=== PATIENT | male | born 1990 | race Caucasian/White ===

== ENCOUNTER 2024-11-18 05:40 | Emergency (ER) | payer BC, SELFPAY ==
[2024-11-18] VITALS (8 sets, daily range): BP systolic 134–152; BP diastolic 90–132; PULSE 79–107; RESP 11–22; O2SAT 99–100
--- NOTE | ~2024-11-18 | XR_ITS ---
Clinical Indication: Chest pain PA and lateral views of the chest: Comparison: None Findings: The lungs are clear, without evidence of focal consolidation or pleural effusion. Cardiome diastinal silhouette is within normal limits. Bones and soft tissues are unremarkable. Impression: Normal chest. Reviewed, dictated and finalized at location . Impression: Normal chest.
--- NOTE | 2024-11-18 05:44 | ECG_ITS ---
Test Date: 2024-11-18 05:52:37 Measurements Intervals [place] Rate: 82 P: 39 [place]: 161 QRS: 21 QRSD: 104 T: 37 QT: 369 QTc: 433 Interpretive Statements SINUS RHYTHM NORMAL ECG No previous ECG available for comparison Electronically Signed On 11-18-2024 08:10:32 CDT by Kwan Teixeira M.D.
--- NOTE | 2024-11-18 06:07 | PC.NURSE ---
Pt presents to ED c/o chest pain, dizziness, lightheadedness lasting about 20min. Per pt was driving when it started having blue balls radiating to chest . Pt placed on advocacy director, and cont. pulse oximeter, EKG done at bedside. Per pt symptoms have subsided and he would like to go back to work.
[2024-11-18 06:08] LABS: Basophils Percent Auto 0.8 % (0.2-1.2); Eosinophils Absolute Auto 0.1 K/mm3 (0-0.3); Eosinophils Percent Auto 2.3 % (0-4.4); Hematocrit 43.1 % (42.0-52.0); Immature Granulocyte Absolute 0.01 K/mm3 (0.00-0.031); Immature Granulocyte Percent A 0.2 % (0-0.5); Lymphocytes Absolute Auto 1.78 K/mm3 (0.9-3.2); Lymphocytes Percent Auto 34.8 % (18.3-44.2); Mean Corpuscular HGB Conc 34.8 g/dl (32-36); Mean Corpuscular Hemoglobin 33.4 pg (26-34); Mean Platelet Volume 9.3 fl (7.4-10.4); Monocytes Absolute Auto 0.5 K/mm3 (0.1-0.6); Monocytes Percent Auto 10.5 % (2.6-8.5); Neutrophils Absolute Auto 2.6 K/mm3 (1.3-6.7); Neutrophils Percent Auto 51.4 % (45.5-73.1); Platelet Count Result 304 k/mm3 (150-375); Red Blood Count 4.49 M/mm3 (4.6-6.20); Red Cell Distribution Width 12.2 % (11.5-14.5); White Blood Count 5.1 K/mm3 (4.5-10.0)
[2024-11-18 06:17] LABS: Add Urine Microscopic? YES; Appearance Urine Clear (Clear); Bacteria Urine None Seen /hpf; Bilirubin Urine Negative (Negative); Blood Urine Negative (Negative); Color Urine Dark Yellow (Yellow); Glucose Urine UA Negative (Negative); Ketones Urine Trace mg/dL (Negative); Leukocyte Esterase Ur Negative LEU/UL (Negative); Nitrate Urine Negative (Negative); Non Pathogenic Casts 0-2; Protein Urine Trace mg/dL (Negative); RBC Urine 0-2 /hpf (0-2); Specific Grav Ur 1.034 (1.001-1.035); Squamous Epithelial Cell Urine None Seen /hpf (Few); WBC Urine 0-5 /hpf (0-3); pH Urine 5.5 (5.0-9.0)
[2024-11-18 06:19] LABS: Alanine Aminotransferase 61 U/L (6-50); Albumin Level 4.8 g/dL (3.5-5.1); Alkaline Phosphatase 55 U/L (38-126); Anion Gap 12 mmol/L (4-12); Aspartate Amino Transferase 53 U/L (17-59); Bilirubin,Total 0.4 mg/dL (0.2-1.3); Blood Urea Nitrogen 16 mg/dL (9-20); Calcium 9.1 mg/dL (8.4-10.2); Carbon Dioxide 24 mmol/L (22-30); Chloride 103 mmol/L (98-107); Estimated CRCL calculation 104 ml/min; Estimated Glomerular Filt Rate > 60; Glucose 147 mg/dL (65-110); Lipase 111 U/L (23-300); Potassium 3.3 mmol/L (3.4-5.0); Sodium 139 mmol/L (137-145)
[2024-11-18 06:24] LABS: INR 0.9; Partial Thromboplastin Time 26.3 Seconds (22.3-36.8); Prothrombin Time 12.4 Seconds (11.1-14.7)
--- OUTSIDE RECORDS SUMMARY | 2024-11-18 06:28 | XMS_ITS | Encounter Summary ---
Author Organization [facility] Address [address] [place] [address] Care Team Providers Care Benefit Authorizer Name Role Phone Summer Burris Primary Care Provider [phone] Encounter Details Date Type Department Care Team (Late st Contact Info) Description 10/31/2024 Results Follow-Up [facility] Family & Internal Medicine [address] [address] Summer Burris APNP [facility] [place], [place] [phone] XR CHEST PA+LAT Social History Tobacco Use Types Packs/Day Years Used Date Smoking Tobacco: Every Day Cigarettes 1 15 Started: 11/17/2009 Smokeless Tobacco: Never Comments:Provider to alcohol and drug counselor . 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 Answer Date of Assessment Author Status No 06/10/2022 5:44 PM FLOOR FINISHER Activ e * Do you have serious difficulty walking or climbing stairs? Answer Date of Assessment Author Status No 06/10/2022 5:44 PM Jesika Alicia RN Active * Do you have difficulty dressing or bathing? Answer Date of Assessment Author Status No 06/10/2022 5:44 PM Jesika Alicia RN Active * Because of a physical, mental, or emotional condition, do you have difficulty doing errands alone such as visiting a doctor's office or shopping? Answer Date of Assessment Author Status No 06/10/2022 5:44 PM Jesika Alicia RN Active * Over the past 2 weeks, how often have you been bothered by any of the following problems? Question Answer Date of Assessment Author Status Little interest or pleasure in doing things Not at all 10/31/2024 1:54 PM MARIAMT Kathy Shah MA Active Feeling down, depressed, or hopeless Not at all 10/31/2024 1:54 PM MARIAMT Dena Shah MA Active Patient Health Questionnaire-2 Score 0 10/31/2024 1:54 PM MARIAMT Shasta Shah MA Active documented as of this encounter Mental Status * Because of a physical, mental, or emotional condition, do you have serious difficulty concentrating, remembering, or making decisions? Answer Entry Date Author Status No 06/10/2022 5:44 PM Jesika Alicia RN Active documented in this encounter Plan of Treatment Upcoming Encounters Date Type Department Care Team (Late st Contact Info) Description 12/07/2024 9:00 AM CDT Office Visit [facility] Family & Internal Medicine [address] [place] [phone] Summer Burris APNP [facility] [place] [address] documented as of this encounter Goals Goal Patient Goal Type Associated Problems Recent Progress Patient-Stated? Author Patient will return to prior living situation and remain independent in ADLs upon discharge from hospital Lifestyle No Sharee Bateman RN documented as of this encounter Visit Diagnoses Not on filedocumented in this encounter Additional Health Concerns Assessment Noted Time PHQ-9 Depression Total Score: 15 024 2:04 PM CDT documented as of this encounter Care Teams Benefit Authorizer Relationship Specialty Start Date End Date Summer Burris APNP [address] [place] [address] PCP - General NURSE PRACTITIONER 11/18/23 documented as of this encounter
--- OUTSIDE RECORDS SUMMARY | 2024-11-18 06:28 | XMS_ITS | Patient Health Record ---
Author Organization [facility] Address [address] [place] [address] Care Team Providers Care Respiratory Practitioner Name Role Phone El Cook Primary Care Provider [phone] Reason For Referral No Information Medications Medication SIG (Take, Route, Frequency, Duration) Notes Start Date End Date Status Wellbutrin 100 MG 1 tablet in the morn ing Orally once a day for 30 day(s) 09/15/2015 Active FLUoxetine HCl 20 MG 1 tablet in the anjana venita Orally Once a day for 30 day(s) 06/30/2015 Not-Taking OLANZapine 5 MG 1 tablet with fluoxe lucien in the evening Orally Once a day for 30 day(s) 06/30/2015 Not-Taking Ranitidine HCl 150 MG 1 tablet Orally Tw ice a day for 30 day(s) 06/25/2015 Active Problems Problem Type SNOMED Code ICD Code Onset Dates Problem Status W/U Status Risk Notes Problem Genital herpes simplex (14835373) Herpesviral infection of urogenital system, unspecified (A60.00) Active confirmed Problem Mood disorder (disorder) (13148313) Persistent 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 GONORRHOEAE RNA, TMA 2015 TRICHOMONAS VAGINALIS RNA QUALITATIVE TM A, MALES 09/15/2015 Insurance Providers Payer Name Payer Address Payer Phone Subscriber Number Group Number Insured Name Patient Relationship to Insured Coverage Start Date Coverage End Date [address] [address] [id number] [place] Self - patient is the insured Medicaid [employer] Primary [address] [id number] [place] Self - patient is the insured Medical (General) History Surgical History Surgery Date(Month/Year) hernia surgery
--- OUTSIDE RECORDS SUMMARY | 2024-11-18 06:28 | XMS_ITS | Clinical Summary ---
Author Organization [facility] Address [facility] [place] [address] Care Team Providers Care Sheet Metal Fabricator Name Role Phone FatumaShanthi AMBER Primary Care Provider [phone] Allergies No known active allergies Medications omeprazole (PRILOSEC) 40 MG capsuleIndication s:Gastroesophagea l reflux disease without esophagitis Take 1 capsule (40 mg total) by mouth daily. 90 capsule 5 Active albuterol sulfate HFA 108 (90 Base) MCG/ACT inhaler 5 Active lisdexamfetamine (VYVANSE) 50 MG capsuleIndication s:Attention deficit hyperactivity disorder (ADHD), predominantly inattentive type Take 1 capsule (50 mg total) by mouth every morning. 30 capsule 5 Active amphetamine-dextr oamphetamine (ADDERALL) 10 MG tabletIndications :Attention deficit hyperactivity disorder (ADHD), predominantly inattentive type Take 1 tablet (10 mg total) by mouth daily. 60 tablet 5 Active lisdexamfetamine (VYVANSE) 40 MG capsuleIndication s:Attention deficit hyperactivity disorder (ADHD), predominantly inattentive type Take 1 capsule (40 mg total) by mouth every morning. 15 capsule 5 11/01/19 25 Discontinu ed(Dose adjustment ) Active Problems Problem Noted Date Diagnosed Date History of diverticulitis 11/18/2023 Diverticulitis 06/10/2022 Insomnia 06/10/2022 GERD (gastroesophageal reflux disease) HPV in male ADD (attention deficit disorder) Encounters Date Type Department Care Team Description 11/01/[address] [facility] Family & Internal Medicine [address] [address] Shanthi Burris APNP Results 10/31/2024 1:40 PM CDT Office Visit [facility] Family & Internal [address] [address] Shanthi Burris APNP Attention Deficit Hyperactivity Disorder; Personal Testing (Pt would like to be tested for STD's. ) 10/31/2024 Hospital Encounter [facility] [address] [place] [address] Shanthi Burris APNP Discharge Disposition: Home or Self Care (Routine Discharge) 10/31/2024 Hospital Encounter [facility] [address] [place] [address] Shanthi Burris APNP Discharge Disposition: Home or Self Care (Routine Discharge) 10/31/2024 Results Follow-Up [facility] Family Internal [address] [address] Shanthi Burris APNP XR CHEST PA+LAT 10/31/2024 Travel from Last 3 Months Immunizations Immunization Administration Dates Next Due Dtap (Acel-Immune) 12/10/1997 Dtp (Generic) 01/27/1994,03/05/1993,01/01/1993 ,1992 Hepatitis B Pediatric 07/01/1998,02/04/1998,03/1998 Hib (Generic) 01/27/1994,03/05/1993,01/01/1993 ,1992 MMR (MMRII) 12/10/1997,01/27/1994 Polio Opv (Generic) 12/10/1997,01/27/1994,1992,1992 Tdap (Adacel) 11/18/2023 Tdap (Generic) 01/19/2015,01/21/2014 Social History Tobacco Use Types Packs/Day Years Used Date Smoking Tobacco: Every Day Cigarettes 1 15 Started: 11/17/2009 Smokeless Tobacco: Never Tobacco Cessation:Ready to Q uit: Yes; Counseling Given: Yes Comments:Provider to automobile travel club counselor. 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 Not on file Not on file Last Filed Vital Signs Vital Sign Reading Time Taken Comments Blood Pressure 126/84 10/31/2024 1:55 PM CDT Pulse 96 10/31/2024 1:55 PM CDT Temperature 36.6 C (97.9 F) 10/31/2024 1:55 PM CDT Respiratory Rate 16 10/31/2024 1:55 PM CDT Oxygen Saturation 98% 10/31/2024 1:55 PM CDT Inhaled Oxygen Concentration - - Weight 85.6 kg (188 lb 12.8 oz) 10/31/2024 1:55 PM CDT Height 177.8 cm (5' 10 ) 10/31/2024 1:55 PM CDT Body Mass Index 27.09 10/31/2024 1:55 PM CDT Plan of Treatment Upcoming Encounters Date Type Department Care Team (Late st Contact Info) Description 12/07/2024 9:00 AM CDT Office Visit [facility] Family & Internal Medicine [address] [address] Shanthi Burris APNP [address] [place] [address] Health Maintenance Due Date Last Done Comments Annual Physical 1995 Pneumococcal Vaccine: Pediatrics (0 to 5 Years) and At-Risk Patients (6 to 49 Years) (1 of 2 - PCV) 2011 COVID-19 Vaccine ( - 2023- season) 2024 DTaP, Tdap and Td Vaccines (9 - Td or Tdap) 11/17/2033 11/18/2023, 01/19/2015, 01/21/2014, Additional history exists Hepatitis B Vaccines Completed 07/01/1998, 02/04/1998, 12/10/1997 Hepatitis C Completed 10/31/2024, 12/30/2023 PHQ-2 (Physician [place]) Completed 10/31/2024 HPV Vaccines Aged Out No longer eligi ble based on patient's age to complete this topic Meningococcal B Vaccine Aged Out No l onger eligible based on patient's age to complete this topic Meningococcal Vaccine Aged Out No luciana gokul eligible based on patient's age to complete this topic RSV Immunizations Under 20 Months Aged Out No longer eligible based on patient's age to complete this topic Goals Goal Patient Goal Type Associated Problems Recent Progress Patient-Stated? Author Patient will return to prior living situation and remain independent in ADLs upon discharge from hospital Lifestyle Sharee Hatfield RN Procedures Procedure Name Priority Date/Time Associated Diagnosis Comments XR CHEST PA+LAT Routine 10/31/2024 2:52 PM CDT Acute cough Other fatigue COLLECTION VENOUS BLOOD VENIPUNCTURE Routine 10/31/2024 2:32 PM CDT Encounter for long-term current use of high risk medication Attention deficit hyperactivity disorder (ADHD), predominantly inattentive type Screening for STD (sexually transmitted disease) Acute cough Other fatigue CHLAMYDIA GC RNA Routine 10/31/2024 2:24 PM CDT Screening for STD (sexually transmitted disease) HERPES SIMPLEX VIRUS IGG Routine 10/31/2024 2:24 PM CDT Screening for STD (sexually transmitted disease) HEPATITIS C ANTIBODY Routine 10/31/2024 2:24 PM CDT Screening for STD (sexually transmitted disease) HIV 1 ANTIGEN(S), WITH HIV-1 AND HIV-2 ANTIBODIES Routine 10/31/2024 2:24 PM CDT Screening for STD (sexually transmitted disease) SYPHILIS AB (DIAGNOSTIC) WITH CASCADING REFLEX Routine 10/31/2024 2:24 PM CDT Screening for STD (sexually transmitted disease) MG/PCCL UDS W CONF Routine 10/31/2024 2: 03 PM CDT Encounter for long-term current use of high risk medication from Last 3 Months Results * XR CHEST PA+LAT (10/31/2024 2:52 PM CDT) Anatomical Region Laterality Modality Chest Radiographic Emi ging 10/31/2024 3:20 PM CDT Impressions 10/31/2024 3:20 PM CDT IMPRESSION: Negative chest Ordered By: SHANTHI BURRIS Interpreted By: Kameron Carbone MD, 10/31/2024 3:20 PM Narrative 10/31/2024 3:20 PM CDT [place] [address] 2 VIEWS OF THE CHEST Clinical history: Pneumonia Comparison: July 15, 2024 2 views of the chest demonstrate the cardiac silhouette to be normal in size and appearance. The pulmonary vasculature appears normal. The Lungs are clear. No consolidations or effusions are seen. Procedure Note Kameron Carbone MD - 10/31/2024 [place] [address] 2 VIEWS OF THE CHEST Clinical history: Pneumonia Comparison: July 15, 2024 2 views of the chest demonstrate the cardiac silhouette to be normal insize and appearance. The pulmonary vasculature appears normal. The Lungsare clear. No consolidations or effusions are seen. IMPRESSION: Negative chest Ordered By: SHANTHI BURRIS Interpreted By: Kameron Carbone MD, 10/31/2024 3:20 PM us Shanthi Burris APNP GENERAL IMAGING Final Resul t * SYPHILIS AB (DIAGNOSTIC) WITH CASCADING REFLEX (10/31/2024 2:24 PM CDT) SYPHILIS IGG IGM AB NON-REACTI VE NON-REACTI VE 10/31/2024 10:05 PM CDT [facility] Comment: No serologic evidence of syphilis. No follow-up necessary unless clinically indicated. 10/31/2024 2:24 PM CDT [facility] Final Resul t Performing Organization Address City/[facility]/ZIP Co de Phone Number [facility] [address] [place] [address], [place] [phone] * CHLAMYDIA GC RNA (10/31/2024 2:24 PM CDT) SPEC DESCRIPTION URINE 11/01/19 25 2:24 PM CDT [facility] CHLAMYDIA RNA TMA NEGATIVE NEGATIVE 025 1:49 PM CDT [facility] Comment:PERFORMED BY NUCLEIC ACID AMPLIFICATION N.GONORRHOEAE RNA TMA NEGATIVE NEGATIVE 11/01/2024 1:49 PM CDT [facility] Comment:PERFORMED BY NUCLEIC ACID AMPLIFICATION URINE SPECIMEN / Unknown 10/31/2024 2:24 PM CDT Shanthi CLARK MICROBIOLOGY - GENERAL ORDE RABLES Final Result Performing Organization Address [facility] Co de Phone Number [facility] [address] [place] [address], [place] [phone] * HIV 1 ANTIGEN(S), WITH HIV-1 AND HIV-2 ANTIBODIES (10/31/2024 2:24 PM CDT) HIV 1/2 AB+ HIV1 P24 AG NON-REACTI VE NON-REACTI VE 10/31/2024 10:05 PM CDT [facility] Comment:HIV 1 p24 Ag and HIV 1/ HIV 2 Ab not detected. 10/31/2024 2:24 PM CDT [facility] Final Resul t [facility] [address] [place] [address], [id number] * HERPES SIMPLEX VIRUS IGG (10/31/2024 2:24 PM CDT) Pathologist [facility] HSV IGG TYPE 1 <0.90 index [facility] HSV IGG TYPE 2 <0.90 index [facility] Comment: Index Interpretation ----- <0.90 Negative 0.90-1.09 Equivocal >1.09 Positive This assay utilizes recombinant type-specific antigens to differentiate HSV-1 from HSV-2 infections. A positive result cannot distinguish between recent and past infection. If recent HSV infection is suspected but the results are negative or equivocal, the assay should be repeated in 4-6 weeks. The performance characteristics of the assay have not been established for pediatric populations, immunocompromised patients, or screening. For additional information, please refer to http://education.FlowPay/faq/GRT349 (This link is being provided for informational/ educational purposes only.) 10/31/2024 2:24 PM CDT 11/02/2024 3:44 AM CDT Narrative Resulting Agency Comment Performing Organization Information: Site ID: [place] Name: Marisela Noel Address: [address] [facility] [place] [address] Director: Fernandez Breen MD [facility] Final Resul t MARISELA HAMMONDS REY RODRIGUEZ [facility] [id number] [place], [place] [address] [address], * HEPATITIS C AB ([facility] ONLY) (10/31/2024 2:24 PM CDT) Pathologist [facility] HEPATITIS C AB NON-REACTI VE NON-REACT RAJI 10/31/2024 10:[address] [facility] Comment: ANTIBODIES TO HCV NOT DETECTED. DOES NOT EXCLUDE THE POSSIBILITY OF EXPOSURE TO HCV. 10/31/2024 2:24 PM CDT Shanthi Burris [facility] Final Resul t [facility] [address] [place] [id number], [id number] * (ABNORMAL) MG/PCCL UDS W CONF (10/31/2024 2:03 PM CDT) RESULT SUMMARY [facility] Comment: Prescribed Prescribed Not Prescribed Consistent Inconsistent Inconsistent Vyvanse(TM) PRESCRIBED DRUG 1 (U) Vyvanse(TM) [facility] FENTANYL SCREEN (U) NEGATIVE <0.5 ng/mL [facility] MORPHINE (U) NEGATIVE <10 ng/mL [facility] DESMETHYLTRAMADOL (U) NEGATIVE <100 ng/mL [facility] TRAMADOL (U) NEGATIVE <100 ng/mL [facility] TRAMADOL COMMENTS [facility] Comment:See LDT Notes AMPHETAMINES PM POSITIVE(A) <500 ng/mL [facility] AMPHETAMINES PM CONFIRMATION (U) 9,027(H) <250 ng/mL [facility] AMPHETAMINES PM MEDMATCH CONF (U) CONSISTENT [facility] METHAMPHETAMINE PM (U) NEGATIVE <250 ng/mL [facility] AMPHETAMINES COMMENT [facility] Comment:See Amphetamines Not es, LDT Notes BARBITURATES PM (U) NEGATIVE <300 ng/mL [facility] BENZODIAZEPINES PM (U) NEGATIVE <100 ng/mL [facility] COCAINE METABOLITE PM (U) NEGATIVE <150 ng/mL [facility] MARIJUANA METABOLITE PM (U) NEGATIVE <20 ng/mL [facility] METHADONE PM (U) NEGATIVE <100 ng/mL [facility] OPIATES PM (U) NEGATIVE <100 ng/mL [facility] OXYCODONE PM (U) NEGATIVE <100 ng/mL [facility] CREATININE RANDOM (U) 280.2 > or = 20.0 mg/dL [facility] pH PM (U) 6.1 4.5 - 9.0 MARISELA DELACRUZ OXIDANT NEGATIVE <200 mcg/mL [facility] NOTE [facility] Comment: This drug testing is for medical treatment only. Analysis was performed as non-forensic testing and these results should be used only by healthcare providers to render diagnosis or treatment, or to monitor progress of medical conditions. Amphetamines Notes: Amphetamine detected is consistent with the use of the drug Amphetamine. Amphetamine can be a prescribed drug and is also a metabolite of methamphetamine. LDT Notes: Confirmation tests were developed and their analytical performance characteristics have been determined by [facility]. It has not been cleared or approved by the FDA. This assay has been validated pursuant to the CLIA regulations and is used for clinical purposes. medMATCH(R) enables providers to identify if drug use is consistent or inconsistent with a corresponding prescribed medication(s) list. Healthcare Providers needing Interpretation assistance, please contact us at [phone] ( ) M-F, 8am to 10pm EST URINE SPECIMEN / Unknown 10/31/2024 2:03 PM CDT 11/01/2024 4:31 AM CDT Narrative Resulting Agency Comment Performing Organization Information: Site ID: [id number] [facility] Address: [address] [place] [address] Director: Hans Massey Site ID: [id number] Name: [facility] Address: [address] [place] [address] Director: Fernandez Breen MD Shanthi CLARK URINE ORDERABLES Final Resu lt MARISELA HAMMONDS - REY ORDERS [facility] [address] [facility] [place] [address], N-S[employer] [address] [place] [address] from Last 3 Months Insurance [facility] Advance Directives * Full Code (Latest Code Status on File) Date Activated Date Inactivated Comments 06/10/2022 5:00 PM 06/12/2022 3:29 PM Care Teams Sheet Metal Fabricator Relationship Specialty Start Date End Date Shanthi Burris APNP [address] [place] [address] PCP - General NURSE PRACTITIONER 11/18/23
--- OUTSIDE RECORDS SUMMARY | 2024-11-18 06:28 | XMS_ITS | Encounter Summary ---
Author Organization [facility] Address [address] [place] [address] Care Team Providers Care Crown And Bridge Technician Name Role Phone None, Provider Primary Care Provider Juventino Sidhu MD Primary Care Provider Summer Burris Primary Care Provider [phone] Encounter Details Date Type Department Care Team (Late st Contact Info) Description 12/09/2018 Abstract [facility] CONVERSION [address] [place] [address] Md, Generic Conversion, Social History Tobacco Use Types Packs/Day Years Used Date Smoking Tobacco: Never Assessed Sex and Gender Information Value Date Recorded Sex Assigned at Male 10/31/2024 1:54 PM CDT 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 Gender Identity Not on file Sexual Orientation Not on file documented as of this encounter Plan of Treatment Upcoming Encounters Date Type Department Care Team (Late st Contact Info) Description 12/07/2024 9:00 AM CDT Office Visit [facility] Family & Internal Medicine - [place] [address] [place] [address] Summer Burris APNP [address] [place] [address] documented as of this encounter Visit Diagnoses Not on filedocumented in this encounter Additional Health Concerns Infection Onset Date Last Indicated Resolved Time COVID-19 Rule Out 12/15/2021 12/15/2021 12/16/2021 7:25 PM CDT documented as of this encounter Care Teams Crown And Bridge Technician Relationship Specialty Start Date End Date None, Provider, PCP - General 12/17/19 12/23/21 [place] [address] [place] [address] [place] [address] PCP - General FAMILY PRACTICE 12/24/21 11/17/23 Summer Burris APNP [address] [place] [id number] PCP - General NURSE PRACTITIONER 11/18/23 documented as of this encounter
--- OUTSIDE RECORDS SUMMARY | 2024-11-18 06:28 | XMS_ITS | Encounter Summary ---
Author Organization [facility] Address [address] [place] [address] Care Team Providers Care Milk Receiver [employer] Name Role Phone None, Provider Primary Care Provider Juventino Sidhu MD Primary Care Provider Summer Burris Primary Care Provider Encounter Details Date Type Department Care Team (Late st Contact Info) Description 09/17/2017 Abstract [facility] CONVERSION [address] [place] [address] , Generic Conversion, Social History Tobacco Use Types Packs/Day Years Used Date Smoking Tobacco: Never Assessed Sex and Gender Information Value Date Recorded Sex Assigned at Male 10/31/2024 1:54 PM CDT 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 Gender Identity Not on file Sexual Orientation Not on file documented as of this encounter Plan of Treatment Upcoming Encounters Date Type Department Care Team (Late st Contact Info) Description 12/07/2024 9:00 AM CDT Office Visit [facility] - [place] [address] [place] [phone] Summer Burris APNP [address] [place] [address] documented as of this encounter Visit Diagnoses Not on filedocumented in this encounter Additional Health Concerns Infection Onset Date Last Indicated Resolved Time COVID-19 Rule Out 12/15/2021 12/15/2021 12/16/2021 7:25 PM CDT documented as of this encounter Care Teams Milk Receiver [employer] Relationship Specialty Start Date End Date None, Provider, PCP - General 12/17/19 12/23/21 [place] [address] [place] [address] [place] [phone] PCP - General FAMILY PRACTICE 12/24/21 11/17/23 Summer Burris APNP [address] [place] [phone] PCP - General NURSE PRACTITIONER 11/18/23 documented as of this encounter
[2024-11-18 06:31] LABS: Troponin I < 0.012 ng/mL (0.000-0.034)
--- NOTE | 2024-11-18 06:32 | ED.CHESTPAIN ---
HPI - Chest Pain General Chief Complaint: Chest Pain Stated Complaint: abd pain radiating to chest Time Seen by Provider: 11/18/24 05:46 History of Present Illness HPI narrative: Patient presenting with sudden episode of pain from the lower abdomen that went up to his chest, this lasted for about 10 minutes, he got very short of breath and sweaty, then the symptoms resolved completely and now he is feeling fine. The pain did not go to his back, he had no focal numbness or weakness anywhere, no nausea vomiting. No testicular pain. Review of Systems Review of Systems: All systems reviewed & are unremarkable except as noted in HPI and below Exam Narrative: EXAMINATION OF ORGAN SYSTEMS/BODY AREAS: Constitutional: Vital signs per nursing GENERAL:[No acute distress, non-toxic appearing.] HEAD: Normal with no signs of head trauma. EYES: EOMI, conjunctiva normal ENT: Hearing grossly intact LUNGS: Nonlabored breathing. HEART: [Regular rate and rhythm], normal bilateral pedal and radial pulses ABD: [Soft], [nontender to palpation] EXT: Normal range of motion SKIN: [No rashes or lesions.] NEURO: [Alert and oriented x 3. No gross focal sensory or strength deficits.] PSYCH: Normal affect Course Vital Signs Vital signs: Vital Signs Oxygen Delivery Room Air 11/18/24 06:06 Oxygen Delivery Room Air 11/18/24 06:06 MDM - Chest Pain MDM Narrative Medical decision making narrative: ED COURSE AND MEDICAL DECISION MAKIN-year-old male presenting with abdominal to chest pain now resolved. EKG done in triage negative for acute ischemic changes. Cardiac workup is initiated. EKG: Performed in triage and interpreted by me. Normal sinus rhythm. Rate 82. Normal axis. [place] normal. QRS duration normal. QTc normal. No pathologic Q waves. No ST segment elevation or depression to suggest acute ischemia. No RV strain pattern. HEART score is 0 with no acute ischemic changes on EKG and negative troponin making ACS unlikely. Wells low risk with negative PERC making PE unlikely. Presentation not consistent with dissection or aneurysm without radiation of pain or pulse deficits. CXR negative for mediastinal widening. No abdominal pain or signs of sepsis that would be concerning for esophageal perforation or mediastinitis. No cardiomegaly or JVD to suggest pericardial effusion/tamponade. Patient completely asymptomatic at this time. On repeat evaluation just prior to discharge, the patient is no acute distress. I had a long discussion with the patient and with shared decision making, [he] is comfortable with outpatient management. [He] was given clear return instructions by myself in person as well as on discharge paperwork. Procedures: Pulse oximetry interpretation - not hypoxic. EKG interpretation. Review of medical records. Lab Data 11/18/24 06:02 11/18/24 06:02 Labs: Lab Results 11/18/24 Range/Units 06:02 WBC Pending RBC Pending Hgb Pending Hct Pending MCV Pending MCH Pending MCHC Pending RDW Pending Plt Count Pending MPV Pending Immature Gran % (Auto) Pending Neut % (Auto) Pending Lymph % (Auto) Pending [place] % (Auto) Pending Eos % (Auto) Pending Baso % (Auto) Pending Lymph # (Auto) Pending [place] # (Auto) Pending Eos # (Auto) Pending Baso # (Auto) Pending Abs Immat Gran (auto) Pending Absolute Neuts (auto) Pending Absolute Nucleated RBC Pending Nucleated RBC % Pending PT 12.4 (11.1-14.7) Seconds INR 0.9 APTT 26.3 (22.3-36.8) Seconds Sodium 139 (137-145) mmol/L Potassium 3.3 L (3.4-5.0) mmol/L Chloride 103 (98-107) mmol/L Carbon Dioxide 24 (22-30) mmol/L Anion Gap 12 (4-12) mmol/L BUN 16 (9-20) mg/dL Creatinine 0.96 (0.7-1.3) mg/dL Estim Creat Clear Calc 104 ml/min Estimated GFR > 60 (59 - ) Glucose 147 H (65-110) mg/dL Calcium 9.1 (8.4-10.2) mg/dL Total Bilirubin 0.4 (0.2-1.3) mg/dL AST 53 (17-59) U/L ALT 61 H (6-50) U/L Alkaline Phosphatase 55 (38-126) U/L Troponin I < 0.012 (0.000-0.034) ng/mL Total Protein 8.0 (6.3-8.2) g/dL Albumin 4.8 (3.5-5.1) g/dL Lipase 111 (23-300) U/L Urine Color Dark yellow (Yellow) Urine Appearance Clear (Clear) Urine pH 5.5 (5.0-9.0) Ur Specific [place] 1.034 (1.001-1.035) Urine Protein Trace (Negative) mg/dL Urine Glucose (UA) Negative (Negative) mg/dL Urine Ketones Trace H (Negative) mg/dL Ur Blood (Man) Negative (Negative) Urine Nitrate Negative (Negative) Urine Bilirubin Negative (Negative) Urine Urobilinogen 1.0 (<2.0) mg/dL Leukocyte Esterase Rfl Negative (Negative) PETRA/UL Urine RBC 0-2 (0-2) /hpf Urine WBC 0-5 (0-3) /hpf Ur Squamous Epith Cells None seen (Few) /hpf Urine Bacteria None seen /hpf Urine Casts 0-2 C. trachomatis (PCR) Pending N. gonorrhoeae (PCR) Pending Discharge Plan Discharge Clinical Impression: Atypical chest pain Patient Disposition: Home Condition: Stable Instructions: Chest Pain (ED) Additional Instructions: Please follow up with a primary care doctor; you can always return to the ER if your symptoms come back. Patient Language: Syriac Follow-up/Referrals: PHYSICIAN,PRINT GRAPHIC DESIGNER [Primary Care Provider] - Anastacia Lee DO [Physician] - 2 Days
[2024-11-18 07:09] LABS: Atypical Lymphocytes Present; Platelet Estimate Adequate (Adequate); Schistocytes None Seen
[2024-11-18 07:42] LABS: Chlamydia trachomatis NOT DETECTED (NOT DETECTE); Neisseria gonorrhoeae PCR NOT DETECTED (NOT DETECTE)
== END 2024-11-18 07:00 | disposition home or self-care (01) ==
PROVIDERS: Emergency Provider Emergency Medicine
DX: R07.89 Other chest pain (principal)
CPT/HCPCS: 36415; 71046; 80053; 81001; 83690; 84484; 85025; 85610; 85730; 87491; 87591; 93005; 99284